=== PATIENT | male | born 1945 | race Caucasian/White ===

== ENCOUNTER 2017-12-26 11:31 | Emergency (ER) | payer MEDICAID, OTHER ==
[2017-12-26] MEDS: LIDOCAINE 1% (MDV) 20 ML INJ SC (12:15)
== END 2017-12-26 13:17 | disposition home or self-care (01) ==
LOC: FTE 11:31
DX: L60.0 Ingrowing nail (principal); I10 Essential (primary) hypertension; E11.9 Type 2 diabetes mellitus without complications
CPT/HCPCS: 11765; 99283-25